=== PATIENT | female | born 1960 | race Caucasian/White ===

== ENCOUNTER → 2017-06-03 12:44 | Emergency (ER) | payer MEDICARE ==
[~2017-06-03] VITALS: Ht 162.6 cm; Wt 68.0 kg
[~2017-06-03 12:44] MED LIST: AZIT250T74 PO; CALC600T10; CARI350T19 PO; CLOZ100T3 PO; COUG100S2 PO; DIAZ10 PO; DILT180C PO; FLUT50SP EACH NARE; GLYC1TAB15 PO; HYDROMET; NORC10TA2 PO; PREV30CA36 PO; [UNRECOGNIZED DRUG - OTHER]
[2017-06-03 12:48] VITALS: BP 150/70; PULSE 65; RESP 12; TEMP 98.2; O2SAT 98
[2017-06-03 13:38] LABS: BILIRUBIN, URINE NEG (NEG); BLOOD, URINE NEG (NEG); GLUCOSE,URINE NEG (NEG); KETONE, URINE NEG (NEG); NITRITE,URINE NEG (NEG); SQUAMOUS EPITHELIAL CELL URINE <1 /hpf (0-5); URINE COLOR LIGHT-YELLOW (YELLW/STRAW); URINE LEUKOCYTE ESTERASE NEG (NEG)
[2017-06-03 13:40] LABS: AUTOMATED NEUTROPHIL # 6.4 TH/MM3 (1.8-7.7); BASOPHIL # 0.1 TH/MM3 (0-0.2); BASOPHIL % 0.7 % (0.0-2.0); EOSINOPHIL % 0.1 % (0.0-4.0); HEMATOCRIT 37.3 % (35.0-46.0); HEMOGLOBIN 12.7 GM/DL (11.6-15.3); LYMPH % 26.3 % (9.0-44.0); LYMPHOCYTE # 2.5 TH/MM3 (1.0-4.8); MEAN CELL VOLUME 91.1 FL (80.0-100.0); MEAN CORPUSCULAR HEMOGLOBIN 30.9 PG (27.0-34.0); MEAN PLATELET VOLUME 7.2 FL (7.0-11.0); MONO % 4.6 % (0.0-8.0); MONOCYTE # 0.4 TH/MM3 (0-0.9); NEUT % 68.3 % (16.0-70.0); PLATELET COUNT 266 TH/MM3 (150-450); RED CELL DISTRIBUTION WIDTH 13.6 % (11.6-17.2); WHITE BLOOD COUNT 9.4 TH/MM3 (4.0-11.0)
[2017-06-03 14:05] LABS: ALBUMIN 4.2 GM/DL (3.4-5.0); AST (GOT) 15 U/L (15-37); BICARBONATE 27.4 MEQ/L (21.0-32.0); BLOOD UREA NITROGEN 10 MG/DL (7-18); CALCIUM 8.8 MG/DL (8.5-10.1); CHLORIDE 103 MEQ/L (98-107); CREATININE 0.85 MG/DL (0.50-1.00); GLOMERULAR FILTRATION RATE 69 ML/MIN (>89); GLUCOSE,RANDOM 79 MG/DL (74-106); SODIUM (NA) 136 MEQ/L (136-145)
[2017-06-03 14:07] LABS: ALT (GPT) 25 U/L (10-53)
[2017-06-03 14:09] LABS: ALKALINE PHOSPHATASE 77 U/L (45-117); TOTAL BILIRUBIN ADULT 0.3 MG/DL (0.2-1.0); TOTAL PROTEIN 7.3 GM/DL (6.4-8.2)
== END | disposition left against medical advice (07) ==
LOC: NED 12:44
DX: R42 Dizziness and giddiness (principal); R11.0 Nausea; Z53.21 Procedure and treatment not carried out due to patient leaving prior to being seen by health care provider
CPT/HCPCS: 80053; 81001; 85025; 99281

== ENCOUNTER 2017-08-14 14:43 | Emergency (ER) | payer MEDICARE ==
[~2017-08-14] VITALS: Ht 162.6 cm; Wt 70.5 kg
[2017-08-14 14:59] VITALS: BP 133/64; PULSE 18; PULSE 72; RESP 18; TEMP 98.4; O2SAT 100
--- NOTE | 2017-08-14 17:34 | PD ---
HPI Chief Complaint: Injury Time Seen by Provider: 17:29 Travel History International Travel<30 days: No Contact w/Intl Traveler<30days: No Traveled to known affect area: No History of Present Illness HPI 57-year-old female here with left foot pain. She reports that she was diagnosed with plantar fasciitis and heel spur in the left foot several months ago. She has been performing heel stretches several times a day. Today she was at the gym, just finished exercising. She reports that she was walking when she felt a "snap" pain on the medial plantar aspect of left foot. Pain is sharp and worse with walking. The pain is improved somewhat over the past few hours. She denies any other injuries. She currently has a pain regimen of hydrocodone, Soma and meloxicam. She has no other complaints at this time. PFSH Past Medical History Asthma: No Bipolar Disorder: Yes Anxiety: Yes Depression: Yes Cancer: Yes (PRECANCEROUS CELLS REMOVED FROM CERVIX) Cardiovascular Problems: Yes (PRINZ METALS) High Cholesterol: Yes Diabetes: Yes ("PRE") Diminished Hearing: No GERD: Yes Glaucoma: No Hepatitis: No Hiatal Hernia: No Hypertension: Yes Musculoskeletal: Yes Neurologic: Yes (ANNULAR TEAR, L3-L4) Psychiatric: Yes (PTSD / HALLUCINATIONS ) Respiratory: No Schizophrenia: Yes Thyroid Disease: Yes Menopausal: Yes : 0 Para: 0 Miscarriage: 0 : 0 Past Surgical History Gynecologic Surgery: Yes (LASER SX ON CERVIX FOR PRECANCER) Neurologic Surgery: Yes (C5-6 FUSION 1996) Oral Surgery: Yes (T & A) Tonsillectomy: Yes Other Surgery: Yes (BROKEN NOSE REPAIR - SDS) Social History Alcohol Use: No Tobacco Use: Yes (6 CIGAR PER DAY) Substance Use: No Allergies-Medications (Allergen,Severity, Reaction): Coded Allergies: latex (Unverified Allergy, Severe, Rash, 06/03/17) penicillin G (Unverified Allergy, Severe, UNKNOWN, 06/03/17) clarithromycin (Unverified Adverse Reaction, Severe, VOMITING, 06/03/17) morphine (Unverified Adverse Reaction, Severe, Nausea/Vomiting, 06/03/17) PT REFUSES MORPHINE STATES THAT IT CREATES NAUSEA AND DIZZINESS Reported Meds & Prescriptions Reported Meds & Active Scripts Active Robitussin (Guaifenesin) 100 Mg/5 Ml Syrp 5 Ml PO Q6H PRN 7 Days Zithromax (Azithromycin) 250 Mg Tab 500 Mg PO DAILY 7 Days Reported Prevacid (Lansoprazole) 30 Mg Capcr 30 Mg PO DAILY [Hydromet] Godfrey 10-325 mg (Hydrocodone-Acetaminophen 10-325 mg) 1 Tab 1 Tab PO Q4H PRN [Energix] Glycopyrrolate 2 Mg Tab 2 Mg PO Fluticasone Propionate (Nasal) 50 Mcg Spr 1 Sealy EACH NARE BID Carisoprodol 350 Mg Tab 350 Mg PO Q12H Calcium + D (Calcium Carbonate-Vitamin D) 600 Mg Tab Diltiazem Hcl Er (Diltiazem HCl) 180 Mg Cap 180 Mg PO DAILY Valium (Diazepam) 10 Mg Tab 10 Mg PO TID FOR 24 HOURS Clozaril (Clozapine) 100 Mg Tab Unknown Dose PO DAILY Review of Systems Musculoskeletal: Positive: Pain, No: Edema Skin: Positive Other (No open wounds) Physical Exam Narrative GENERAL: Well-developed well-nourished female no acute distress SKIN: Warm and dry. No bruising or soft tissue swelling CARDIOVASCULAR: Regular rate and rhythm. No murmur appreciated. RESPIRATORY: No accessory muscle use. Clear to auscultation. Breath sounds equal bilaterally. Extremities: There is no reproducible tenderness to palpation to the dorsal or plantar aspect of left foot. The Achilles tendon is intact and nontender. 2+ dorsalis pedis pulse. The patient has 5 out of 5 muscle strength on dorsi and plantar flexion of the left ankle. Data Data Last Documented VS Vital Signs Date Time Temp Pulse Resp B/P (MAP) Pulse Ox O2 Delivery O2 Flow Rate FiO2 08/14/17 14:59 98.4 72 18 133/64 (87) 100 Orders Orders Ed Discharge Order (08/14/17 17:29) Crutches (08/14/17 17:29) Splint Or Brace Apply/Monitor (08/14/17 17:29) MDM Medical Decision Making Medical Screen Exam Complete: Yes Emergency Medical Condition: Yes Medical Record Reviewed: Yes Differential Diagnosis Foot strain, plantar fasciitis, sprain, ligamentous disruption, tendon disruption, fracture Narrative Course Physical examination is reassuring. The patient maintains full range of motion of the left foot and ankle. She has 5 out of 5 muscle strength. There is no reproducible tenderness to palpation, no bruising or soft tissue swelling. At this point in time the plan will be to treat her conservatively with crutches and postop shoe to use as tolerated. 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 Emergency MRI is not indicated in this situation. She is agreeable to this plan. Diagnosis Primary Impression: Strain of left foot Additional Instructions: Crutches as needed. Postop shoe as tolerated. Ice several times a day 15 minutes at a time to the affected area. Follow-up with your pipelines supervisor in 1-2 weeks. Return for any emergent medical conditions. Med/Other Pt SpecificInfo: No Change to Meds Disposition: 01 DISCHARGE HOME Condition: Stable Lenny Means Aug 14, 2017 17:34
[2017-08-14] MEDS ORDERED: MOBI15TA PO (17:39)
== END 2017-08-14 18:14 | disposition home or self-care (01) ==
LOC: NEPK 14:43
DX: S96.912A Strain of unspecified muscle and tendon at ankle and foot level, left foot, initial encounter (principal); X50.9XXA Other and unspecified overexertion or strenuous movements or postures, initial encounter; Y93.01 Activity, walking, marching and hiking; Y92.39 Other specified sports and athletic area as the place of occurrence of the external cause
CPT/HCPCS: 99281; E0113; L3260